=== PATIENT | male | born 1955 | race Caucasian/White ===

== ENCOUNTER → 2016-07-29 | Outpatient (CLI) | payer BC ==
[~2016-07-29] MED LIST: ASPI81TA28 PO; ATOR-24 PO; BROM0.07 OPL; BYTI10 SC; CHOL1000 PO; CINN1CAP2 PO; CYAN500T13 PO; DOCU100C31 PO; FOLI400T41 PO; HMLI SC; INSDGI SC; KRIL1CAP3 PO; LISI-461 PO; LSX/40 PO; METO25TA56 PO; MULT-513 PO; PRED1SUS3; PRED1SUS3 OPL; SYN100 PO
[2016-07-29 16:43] LABS: BASO % 0.2 %; BASO ABS # 0.02 K/uL (0-0.2); COMPLETE YES; EOS % 1.3 %; HEMATOCRIT 40.9 % (42-52); IG% 0.3 %; LYMPH % 27.3 %; LYMPH ABS # 3.07 K/uL (1.2-3.4); MEAN CELL VOLUME 88.5 fL (80-100); MEAN CORPUSCULAR HEMOGLOBIN 29.7 pg (25-34); MEAN CORPUSCULAR HGB CONC 33.5 g/dl (32-36); MEAN PLATELET VOLUME 12.2 fL (7.4-10.4); MONO % 6.9 %; PLATELET COUNT 214 K/uL (130-400); RED BLOOD COUNT 4.62 M/uL (4.7-6.1); WHITE BLOOD COUNT 11.25 K/uL (4.8-10.8)
[2016-07-29 16:50] LABS: ALT/SGPT 25 U/L (12-78); AST/SGOT 12 U/L (15-37); URIC ACID 5.9 mg/dl (2.6-7.2)
[2016-07-29 16:53] LABS: ALKALINE PHOSPHATASE 66 U/L (45-117)
[2016-07-30 06:19] LABS: ESTIMATED AVERAGE GLUCOSE 203 mg/dl; HA1C FLAG Normal (Normal)
== END | disposition home or self-care (01) ==
LOC: C.LAB1850 15:25
PROVIDERS: ATTEND Internal Medicine Rheumatology
DX: E11.49 Type 2 diabetes mellitus with other diabetic neurological complication (principal); M1A.9XX1 Chronic gout, unspecified, with tophus (tophi)

== ENCOUNTER → 2016-09-30 | Outpatient (CLI) | payer BC ==
[2016-09-30 15:50] LABS: BASO % 0.1 %; BASO ABS # 0.01 K/uL (0-0.2); COMPLETE YES; EOS % 1.6 %; HEMATOCRIT 40.6 % (42-52); IG% 0.2 %; LYMPH % 35.7 %; LYMPH ABS # 3.18 K/uL (1.2-3.4); MEAN CELL VOLUME 85.7 fL (80-100); MEAN CORPUSCULAR HEMOGLOBIN 28.7 pg (25-34); MEAN CORPUSCULAR HGB CONC 33.5 g/dl (32-36); MEAN PLATELET VOLUME 11.3 fL (7.4-10.4); MONO % 6.5 %; NEUT % 55.9 %; PLATELET COUNT 221 K/uL (130-400); RED BLOOD COUNT 4.74 M/uL (4.7-6.1); WHITE BLOOD COUNT 8.92 K/uL (4.8-10.8)
[2016-09-30 15:58] LABS: URINE APPEARANCE CLEAR (CLEAR); URINE BILIRUBIN NEG (NEG); URINE COLOR YELLOW; URINE NITRITE NEG (NEG); URINE PH 5.5 (4.5-7.5); URINE SPECIFIC GRAVITY 1.011 (1.000-1.030); UROBILINOGEN NEG (NEG); ZZUR CULT IF INDIC CLEAN CATCH NO
[2016-09-30 16:07] LABS: MANUAL MICROSCOPIC REQUIRED? NO; REVIEW REQ? NO
[2016-09-30 16:09] LABS: BLOOD UREA NITROGEN 44 mg/dl (7-18); BUN/CREATININE RATIO 22.2 (10-20); CALCIUM 9.8 mg/dl (8.5-10.1); CARBON DIOXIDE 27 mmol/L (21-32); CHLORIDE 104 mmol/L (98-107); GLUCOSE 143 mg/dl (70-99); MAGNESIUM 2.2 mg/dl (1.8-2.4); POTASSIUM 4.8 mmol/L (3.5-5.1); SODIUM 139 mmol/L (136-145)
[2016-09-30 16:10] LABS: PHOSPHORUS 3.3 mg/dl (2.5-4.9)
[2016-09-30 16:15] LABS: URINE PROTIEN/CREAT RATIO 0.4 (0-0.2)
== END | disposition home or self-care (01) ==
LOC: C.LAB1850 14:58
PROVIDERS: ATTEND Internal Medicine Nephrology
DX: N18.3 Chronic kidney disease, stage 3 (moderate) (principal)

== ENCOUNTER 2019-06-22 10:14 | Inpatient (IN) ==
[2019-06-22] MEDS ORDERED: METOPROLOL TARTRATE 1 MG/ML VIAL IV STA ×2 (11:09→14:06)
[2019-06-22] MEDS ORDERED: SODIUM CHLORIDE 0.9% 500 ML IV SCH (11:15)
--- NOTE | 2019-06-22 11:33 | XRay Report ---
SINGLE VIEW CHEST CLINICAL HISTORY: Atypical chest pain. FINDINGS: 2 AP, portable, upright chest radiographs are compared to chest x-ray and chest CT dated 06/2014. The examination is degraded by portable technique, large body habitus, and patient rotation. The patient is status post midline sternotomy. The heart is enlarged. There is pulmonary vascular co ngestion. There is chronic elevation of the right hemidiaphragm with associated atelectasis. No airsp rosmery consolidation is seen typical for pneumonia and there is no large pleural effusion. No pneumothor ax is seen. The skeletal structures are osteopenic. The bony thorax is grossly intact. IMPRESSION: Cardiomegaly with evidence of congestive failure. Electronically signed by: Franklin Valles M.D. 06/22/2019 11:31 AM
[2019-06-22 11:37] LABS: Basophils # (auto) 0.01 K/uL (0-0.2); Basophils % (auto) 0.1 %; Eosinophils % (auto) 1.2 %; Hematocrit (blood only) 38.6 % (42-52); Hemoglobin 12.4 g/dL (14.0-18.0); Immature Granulocytes # (auto) 0.03 K/uL (0.00-0.02); Immature Granulocytes % (auto) 0.4 %; Lymphocytes % (auto) 21.3 %; Mean Corpuscular Hemoglobin 28.9 pg (25-34); Mean Corpuscular Hgb Conc 32.1 g/dL (32-36); Mean Platelet Volume 12.5 fL (7.4-10.4); Monocytes # (auto) 0.73 K/uL (0.11-0.59); Monocytes % (auto) 8.6 %; Neutrophils % (auto) 68.4 %; Platelet Count 171 K/uL (130-400); RDW Coefficient of Variation 14.6 % (11.5-14.5); RDW Standard Deviation 47.1 fL (36.4-46.3); Red Blood Count 4.29 M/uL (4.7-6.1); White Blood Count 8.47 K/uL (4.8-10.8)
[2019-06-22 11:45] LABS: Albumin Level 3.1 gm/dl (3.4-5.0); Calcium 8.5 mg/dl (8.5-10.1); Creatinine Clr Calc Pharmacy 56.8 ml/min; Est GFR (African American) 43.1; Est GFR (Non-African American) 37.2; INR 1.1 (0.9-1.1); Partial Thromboplastin Time 26.8 Seconds (21.0-31.0); Potassium 4.4 mmol/L (3.5-5.1)
[2019-06-22 11:50] LABS: Albumin Globulin Ratio 0.8 (0.9-2); Bilirubin,Total 0.4 mg/dl (0.2-1); Total Protein 7.1 gm/dl (6.4-8.2); Troponin I 0.019 ng/ml (0-0.045)
--- NOTE | 2019-06-22 13:27 | Emergency Department Note ---
Entered by Arun Wagner acting as a scribe for Matthew Sage DO History of Present Illness General Chief complaint: Shortness of Breath/Dyspnea Stated complaint: SOB Time Seen by Provider: 06/22/19 10:44 Source: patient History of Present Illness Provider complaint: Shortness of breath Onset (ago): day(s) 3 Location: chest Radiation: non-radiation Severity: similar to prior episodes Pain Consistency: + constant Exacerbated By: + other (Exertion) Associated symptoms: no chest pain and no fever/chills The patient is a 63 year old male who presents to the Emergency Room with co mplaints of constant shortness of breath that started about 3 days ago. The patient states his shortness of breath is worse with exertion. Per the patient's , his pulse has also been elevated since the onset of his shortness of breath. The patient takes Aspirin daily but is not on any other blood thinners. The patient has a cardiac history and follows with Columba Plummer. He was supposed to see her this week but his appointment was rescheduled for July. The patient denies any pain or swelling in his legs as well as any chest pain or fevers. He does admit to being a former smoker. Home Medications Home Medications Medication Instructions Recorded Confirmed Type ascorbic acid (vitamin C) 500 mg 500 mg PO DAILY tab 03/03/19 06/22/19 History tablet aspirin 81 mg tablet,delayed 81 mg PO DAILY tab 03/03/19 06/22/19 History release blood-glucose meter #1 ea 03/03/19 History cholecalciferol (vitamin D3) 50 4,000 units PO DAILY cap 03/03/19 06/22/19 History mcg (2,000 unit) capsule cyanocobalamin (vitamin B-12) 500 500 mcg PO DAILY #100 tab 03/03/19 06/22/19 History mcg tablet diclofenac sodium 1 % topical gel 2 gm TOPICAL BID #1 gm 03/03/19 06/22/19 History dulaglutide 1.5 mg/0.5 mL 1.5 mg SQ WEEKLY ml 03/03/19 06/22/19 History subcutaneous pen injector folic acid 400 mcg tablet 400 mcg PO DAILY tab 03/03/19 06/22/19 History insulin aspart U-100 100 unit/mL 60 units SQ .COMPLEX ml 03/03/19 06/22/19 History (3 mL) subcutaneous pen krill oil 500 mg capsule 500 mg PO DAILY cap 03/03/19 06/22/19 History lancets 33 gauge #100 ea 03/03/19 History levothyroxine 112 mcg capsule 112 mcg PO .COMPLEX cap 03/03/19 06/22/19 History metoprolol tartrate 25 mg tablet 25 mg PO BID tab 03/03/19 06/22/19 History multivitamin 1 tab PO DAILY 03/03/19 06/22/19 History naltrexone 8 mg-bupropion 90 mg 1 tab PO BID tab 03/03/19 06/22/19 History tablet,extended release Tresiba FlexTouch U-200 200 80 units SQ HS 90 Days #4 box NS 03/12/19 06/22/19 Rx unit/mL (3 mL) subcutaneous pen lisinopril 10 mg tablet 10 mg PO DAILY #30 tab 04/26/19 06/22/19 Rx pen needle, diabetic 31 gauge x #500 ea 05/07/19 Rx 3/16" Praluent Pen 75 mg/mL subcutaneous 75 mg SQ Q14D #6 ml NS 05/11/19 06/22/19 Rx pen injector ZadspaceTouch Ultra Blue Test Strip #300 ea NS 05/13/19 Rx furosemide 40 mg tablet 40 mg PO Q OTHER DAY #45 tab 06/13/19 06/22/19 Rx Allergies Allergy/AdvReac Type Severity Reaction Status Date / Time Laapflb-Iuc-Zjq Reductase Allergy Unknown Verified 06/22/19 11:37 Inhibitor Past Med/Surg History Medical History Background diabetic retinopathy associated with type 2 diabetes mellitus Chronic tophaceous gout Coronary artery disease Diabetes Diabetic nephropathy associated with type 2 diabetes mellitus Diabetic peripheral neuropathy associated with type 2 diabetes mellitus Dyslipidemia Former smoker Hypertension Hypertension Hypothyroidism Morbid obesity Osteoarthrosis Stage III chronic kidney disease Surgical History S/P CABG (coronary artery bypass graft) Family History Other Kidney disease Social History Current Living Situation: Spouse Feels Safe at Home: Yes Smoking Status: Former smoker Review of Systems See HPI for pertinent positives & negatives. and A total of 10 systems reviewed and were otherwise negative Physical Exam Vital Signs Vital Signs - 24 hr 06/22/19 10:22 06/22/19 10:34 06/22/19 10:48 Temperature 36.5 C Temperature Source Oral Pulse Rate 142 H 89 119 H Pulse Rate from SpO2 Sensor 123 H 110 H Respiratory Rate 24 21 22 Respiratory Effort / Characteristics Non-Labored Non-Labored Respiratory Depth Normal Blood Pressure 159/101 H 93/68 L Blood Pressure Mean 120 77 Pulse Oximetry 96 95 95 Oxygen Delivery Method Room Air Room Air Sepsis Recent Fever Within 48 Hours No Sepsis Action Taken by Nursing No Action Required 06/22/19 10:51 06/22/19 11:00 06/22/19 11:01 Temperature Temperature Source Pulse Rate 110 H 118 H 98 H Pulse Rate from SpO2 Sensor 104 H 101 H 98 H Respiratory Rate 21 16 14 Respiratory Effort / Characteristics Respiratory Depth Blood Pressure 98/77 L 86/68 L Blood Pressure Mean 89 78 Pulse Oximetry 97 97 97 Oxygen Delivery Method Sepsis Recent Fever Within 48 Hours Sepsis Action Taken by Nursing 06/22/19 11:30 06/22/19 11:31 06/22/19 11:38 Temperature Temperature Source Pulse Rate 115 H 110 H Pulse Rate from SpO2 Sensor 111 H 94 H Respiratory Rate 20 19 Respiratory Effort / Characteristics Respiratory Depth Blood Pressure 112/67 Blood Pressure Mean 85 Pulse Oximetry 97 97 97 Oxygen Delivery Method Room Air Sepsis Recent Fever Within 48 Hours Sepsis Action Taken by Nursing 06/22/19 12:00 06/22/19 12:01 06/22/19 12:03 Temperature Temperature Source Pulse Rate 107 H 92 H 92 H Pulse Rate from SpO2 Sensor 98 H 92 H 97 H Respiratory Rate 20 18 19 Respiratory Effort / Characteristics Respiratory Depth Blood Pressure 91/69 L 108/87 Blood Pressure Mean 84 91 Pulse Oximetry 96 97 97 Oxygen Delivery Method Sepsis Recent Fever Within 48 Hours Sepsis Action Taken by Nursing 06/22/19 12:04 06/22/19 12:30 06/22/19 12:31 Temperature Temperature Source Pulse Rate 92 H 90 104 H Pulse Rate from SpO2 Sensor 94 H 96 H 100 H Respiratory Rate 21 21 21 Respiratory Effort / Characteristics Respiratory Depth Blood Pressure 110/69 Blood Pressure Mean 70 Pulse Oximetry 98 97 97 Oxygen Delivery Method Sepsis Recent Fever Within 48 Hours Sepsis Action Taken by Nursing 06/22/19 13:00 06/22/19 13:01 Temperature Temperature Source Pulse Rate 115 H 109 H Pulse Rate from SpO2 Sensor 99 H 93 H Respiratory Rate 21 21 Respiratory Effort / Characteristics Respiratory Depth Blood Pressure 106/76 Blood Pressure Mean 98 Pulse Oximetry 98 98 Oxygen Delivery Method Sepsis Recent Fever Within 48 Hours Sepsis Action Taken by Nursing CONSTITUTIONAL/VITAL SIGNS: Reviewed / noted above. GENERAL: Non-toxic in appearance. INTEGUMENTARY: Warm, dry, and [place]. HEAD: Normocephalic. EYES: without scleral icterus or trauma. ENT/OROPHARYNX: clear and moist. LYMPHADENOPATHY/NECK: Is supple without lymphadenopathy or meningismus. RESPIRATORY: Lungs clear and equal. CARDIOVASCULAR: Tachycardic rate with irregular rhythm. GI/ABDOMEN: Soft and nontender. No organomegaly or pulsatile mass. No rebound or guarding. Normal bowel sounds. EXTREMITIES: Warm and well perfused. BACK: No CVA tenderness. NEUROLOGICAL: Intact without focal deficits. PSYCHIATRIC: normal affect. MUSCULOSKELETAL: Normally developed with good muscle tone. Course Course 1046: Past medical records reviewed. The patient was evaluated in room C04, and a complete history and physical examination were performed. 1236: I reevaluated the patient and he is resting in bed. I updated him on test results and we discussed the treatment plan which he is agreeable to. 1244: I spoke to Dr. Jean-Claude Osborne [facility] Hospitalist about the patient's case. He agreed to accept the patient for further evaluation. Consultations Consultation #1: I spoke to Dr. Jean-Claude Osborne [facility] Hospitalist about the patient's case. He agreed to accept the patient for further evaluation. Time: 12:44 Administered Medications Discontinued Medications Sodium Chloride (Nss) 500 mls @ 999 mls/hr IV .Q31M [facility] Stop: 06/22/19 11:45 Last Admin: 06/22/19 12:06 Dose: 999 mls/hr Documented by: [id number] Metoprolol Tartrate (Lopressor) 5 mg IV NOW STA Stop: 06/22/19 11:10 Last Admin: 06/22/19 12:06 Dose: Not Given Documented by: [id number] Medical Decision Making Differential Diagnosis Differential diagnoses includes but is not limited to pneumonia, bronchitis, COPD/Asthma exacerbation, pneumothorax, pulmonary embolism, congestive heart failure, acute coronary syndrome, amongst others. Medical Records Attestation: I reviewed the patient's medical records. Home Medications Current Medication List: was personally reviewed by me Laboratory Data Attestation: I reviewed the patient's lab results. Result diagrams: 06/22/19 10:47 06/22/19 10:47 Lab Results 06/22/19 06/22/19 06/22/19 Range/Units 10:47 10:47 10:47 WBC 8.47 (4.8-10.8) K/uL RBC 4.29 L (4.7-6.1) M/uL Hgb 12.4 L (14.0-18.0) g/dL Hct 38.6 L (42-52) % MCV 90.0 (80-100) fL MCH 28.9 (25-34) pg MCHC 32.1 (32-36) g/dL RDW Std Deviation 47.1 H (36.4-46.3) fL RDW Coeff of Lucas 14.6 H (11.5-14.5) % Plt Count 171 (130-400) K/uL MPV 12.5 H (7.4-10.4) fL Immature Gran % (Auto) 0.4 % Neut % (Auto) 68.4 % Lymph % (Auto) 21.3 % [place] % (Auto) 8.6 % Eos % (Auto) 1.2 % Baso % (Auto) 0.1 % Immature Gran # (Auto) 0.03 H (0.00-0.02) K/uL Neut # (Auto) 5.80 (1.4-6.5) K/uL Lymph # (Auto) 1.80 (1.2-3.4) K/uL [place] # (Auto) 0.73 H (0.11-0.59) K/uL Eos # (Auto) 0.10 (0-0.5) K/uL Baso # (Auto) 0.01 (0-0.2) K/uL PT 11.0 (9.0-12.0) Seconds INR 1.1 (0.9-1.1) APTT 26.8 (21.0-31.0) Seconds PTT Ratio 1.0 Sodium 139 (136-145) mmol/L Potassium 4.4 (3.5-5.1) mmol/L Chloride 110 H (98-107) mmol/L Carbon Dioxide 24 (21-32) mmol/L Anion Gap 5.0 (3-11) BUN 41 H (7-18) mg/dl Creatinine 1.87 H (0.6-1.4) mg/dl Est Cr Clr Drug Dosing 56.8 ml/min Est GFR ( Amer) 43.1 Est GFR (Non-Af Amer) 37.2 BUN/Creatinine Ratio 22.0 H (10-20) Glucose 95 (70-99) mg/dl Calcium 8.5 (8.5-10.1) mg/dl Total Bilirubin 0.4 (0.2-1) mg/dl AST 13 L (15-37) U/L ALT 27 (12-78) U/L Alkaline Phosphatase 59 (45-117) U/L Troponin I 0.019 (0-0.045) ng/ml Total Protein 7.1 (6.4-8.2) gm/dl Albumin 3.1 L (3.4-5.0) gm/dl Globulin 4.0 (2.5-4.0) gm/dl Albumin/Globulin Ratio 0.8 L (0.9-2) Lipase 68 L (73-393) U/L Imaging Data Radiologist's Impression: Radiology results as stated below per my review and the radiologist's interpretation: SINGLE VIEW CHEST CLINICAL HISTORY: Atypical chest pain. FINDINGS: 2 AP, portable, upright chest radiographs are compared to chest x-ray and chest CT dated 03/18/2014. The examination is degraded by portable technique, large body habitus, and patient rotation. The patient is status post midline sternotomy. The heart is enlarged. There is pulmonary vascular congestion. There is chronic elevation of the right hemidiaphragm with associated atelectasis. No airspace consolidation is seen typical for pneumonia and there is no large pleural effusion. No pneumothorax is seen. The skeletal structures are osteopenic. The bony thorax is grossly intact. IMPRESSION: Cardiomegaly with evidence of congestive failure. Electronically signed by: Franklin Valles M.D. 06/22/2019 11:31 AM ECG Data Attestation: I personally reviewed and interpreted this ECG as follows: Indication: + SOB/dyspnea Rate (beats per minute): 138 Rhythm: + atrial flutter ECG Intervals/blocks: + Right Bundle branch block ECG ST segments: no ST elevation ECG Findings: no PACs and no PVCs Blood Pressure Blood Pressure Findings: Elevated blood pressure Blood Pressure Disposition: Referred to patients primary care provider MDM Narrative This is a 63-year-old male who presents to the ED with a chief complaint of shortness of breath. The patient states that he has been feeling short of breath for the past few days. He is also noticed an increased heart rate. He follows with [facility] cardiology. He states that he does have a remote histor y of atrial flutter, he thinks but is not sure. He may have had this at some time during or prior to his CABG. He is not on anticoagulation and denies recent history atrial febrile letter. The patient's twelve-lead EKG revealed atrial flutter with RVR of 138. His blood pressure was initially around 90 systolic. His CBC and chemistry panel was normal. The BUN is 41 and creatinine is 1.87. This is near baseline for creatinine. The chest x-ray showed congestive changes. Clinically I did not feel he was an acute pulmonary edema. The patient was initially ordered a 500 cc normal saline bolus and received about 150 cc of this. He was also ordered 5 mg of IV Lopressor. His blood pressure did improve to 110 systolic and his heart rate decreased into the 90- 110's. The patient will be seen by the hospitalist for further evaluation and care. Impression & Plan Congestive heart failure, Atrial flutter Discharge Plan Visit Data Chief Complaint: Shortness of Breath/Dyspnea Stated Complaint: SOB ED Provider: Matthew Sage Discharge Problem: Congestive heart failure, Atrial flutter Patient Disposition: Being Evaluated by Hospitalist Forms Stand Alone Forms: My [facility] Prescriptions Prescriptions: No Action aspirin 81 mg tablet,delayed release (DR/EC) 81 mg PO DAILY RF: 0 Contrave 8-90 mg tablet extended release 1 tab PO BID RF: 0 diclofenac sodium 1 % gel 2 gm topical BID Qty: 1 RF: 0 folic acid 400 mcg tablet 400 mcg PO DAILY RF: 0 krill oil 500 mg capsule 500 mg PO DAILY RF: 0 levothyroxine 112 mcg capsule 112 mcg PO .COMPLEX RF: 0 metoprolol tartrate 25 mg tablet 25 mg PO BID RF: 0 multivitamin tablet 1 tab PO DAILY RF: 0 Novolog Flexpen U-100 Insulin 100 unit/mL (3 mL) insulin pen 60 units SQ .COMPLEX RF: 0 (DME) lancets [OneTouch Delica Lancets] 33 gauge misc See Dose Instructions .ROUTE .MEDSUPPLY Qty: 100 RF: 0 (DME) blood-glucose meter [OneTouch UltraMini] kit See Dose Instructions .ROUTE .MEDSUPPLY Qty: 1 RF: 0 ascorbic acid (vitamin C) 500 mg tablet 500 mg PO DAILY RF: 0 Trulicity 1.5 mg/0.5 mL pen injector 1.5 mg SQ WEEKLY RF: 0 cyanocobalamin (vitamin B-12) 500 mcg tablet 500 mcg PO DAILY Qty: 100 RF: 0 cholecalciferol (vitamin D3) 2,000 unit capsule 4,000 units PO DAILY RF: 0 Tresiba FlexTouch U-200 200 unit/mL (3 mL) insulin pen 80 units SQ HS 90 Days Qty: 4 RF: 1 lisinopril 10 mg tablet 10 mg PO DAILY Qty: 30 RF: 5 (DME) pen needle, diabetic [BD Ultra-Fine Mini Pen Needle] 31 gauge x 3/16" n eedle See Dose Instructions .ROUTE .MEDSUPPLY Qty: 500 RF: 3 Praluent Pen 75 mg/mL pen injector 75 mg SQ Q14D Qty: 6 RF: 3 (DME) OneTouch Ultra Blue Test Strip strip See Dose Instructions .ROUTE .MEDSUPPLY Qty: 300 RF: 3 furosemide 40 mg tablet 40 mg PO Q OTHER DAY Qty: 45 RF: 3 Referrals Referrals: Abel Nicolas MD [Primary Care Provider] - Discharge Problem: Congestive heart failure Qualifiers: Heart failure type: unspecified Heart failure chronicity: unspecified Qualified Code(s): I50.9 - Heart failure, unspecified Atrial flutter Qualifiers: Atrial flutter type: unspecified Qualified Code(s): I48.92 - Unspecified atrial flutter The scribe's documentation has been prepared under my direction and personally reviewed by me in its entirety. I confirm that the note above accurately reflects all work, treatment, procedures, and medical decision making performed by me.
--- NOTE | 2019-06-22 13:30 | History & Physical Report ---
Date of Service June 22, 2019 Assessment & Plan (1) Atrial flutter: (2) Atrial fibrillation with RVR: -Admit to telemetry -Patient was treated with 1 IV dose of Lopressor in the ER with improvement in heart rate from the 140s down into 110s, repeat another dose of IV Lopressor 5mg now, Bp stable, continue PRN with parameters. -Cardiology consult, [facility] [place]. -Repeat echo -Trend troponins x2 more sets, initial was 0.019 (3) Congestive heart failure: -Chronic -Slightly hypervolemic upon admission, giving lasix as above, check echo as last results are from 2014 where EF was 50%. He had worst cardiac function after his [place] in 2013 -Follow VS, monitor BP and HR -Daily weights, strict I/Os, fluid restriction to 1500ml/d -Cardiology consultation (4) Coronary artery disease: -History of CABG x3, previous [place] in 2013 -Continue aspirin 81 mg daily, metoprolol tartrate 25 mg BID, hold lisinopril this evening with administration of lopressor IV and lasix. (5) Hypertension: -Continue beta-blockade and lasix as above. (6) Dyslipidemia: -Continue Krill oil (7) Former smoker: -Stable, resolved (8) Diabetes: -Continue ISS with Accu-Cheks ACHS -Tresiba flex touch 200 subcu pen injections, Trulicity 1.5 mg weekly, uses slid ing scale at home -Last A1c = 7.2 04/23/2019 (9) Hypothyroidism: -Continue levothyroxine 112 mcg daily (10) Morbid obesity: -BMI of 47.4 -DM/heart healthy diet -Diet and exercise to be encouraged upon discharge (11) Stage III chronic kidney disease: - Cr. 1.87, BUN = 41, appears to be around his baseline. - Will hold lisinopril tonight with IV lasix and monitor with am PRP. (12) DVT prophylaxis: -Teds, SCDs, heparin subcu CODE STATUS: FULL Dispo: Patient from home, to remain in the hospital x1 to 2 days History of Present Illness Primary Care Provider: Abel Nicolas MD This is a 63-year-old male with past medical history of CAD s/p CABG x3 in Apr 2014 with postop sternal wound infection, a flutter, A. fib, HTN, HLD, CHF, CKD stage III, DM type II, diabetic nephropathy, diabetic retinopathy, hypothyroidism, gout who presents to the ER in atrial fibrillation with RVR. Patient was initially found to have heart rate elevated in the 140s, has improved with 1 dose of IV Lopressor to the ~110s. The patient notes that he began feeling short of breath with ADLs about 3 days ago. He has difficulty going up a flight of stairs without becoming significantly winded. He denies any chest pain, palpitations, flutter. He reports that he has not been sleeping well as he feels slightly short of breath, but denies orthopnea. He denies any lightheadedness or dizziness. He has been eating and drinking without difficulty. Patient states that he is not swollen however on exam appears to have mild pitting edema in both legs. Patient reports he took his morning medication today which includes metoprolol tartrate 25 mg, last took lisinopril last evening, and last took Lasix 40 mg QOD 2 nights ago. He follows with Columba Plummer PA-C with [facility] [place] but has not been in to see her recently due to having a routine appointment rescheduled for July 2019. Allergies Allergy/AdvReac Type Severity Reaction Status Date / Time [id number]-Cpm Reductase Allergy Unknown Verified 06/22/19 11:37 Inhibitor Home Medications Home Medications Medication Instructions Recorded Confirmed Type ascorbic acid (vitamin C) 500 mg 500 mg PO DAILY tab 03/03/19 06/22/19 History tablet aspirin 81 mg tablet,delayed 81 mg PO DAILY tab 03/03/19 06/22/19 History release blood-glucose meter #1 ea 03/03/19 History cholecalciferol (vitamin D3) 50 4,000 units PO DAILY cap 03/03/19 06/22/19 History mcg (2,000 unit) capsule cyanocobalamin (vitamin B-12) 500 500 mcg PO DAILY #100 tab 03/03/19 06/22/19 History mcg tablet diclofenac sodium 1 % topical gel 2 gm TOPICAL BID #1 gm 03/03/19 06/22/19 History dulaglutide 1.5 mg/0.5 mL 1.5 mg SQ WEEKLY ml 03/03/19 06/22/19 History subcutaneous pen injector folic acid 400 mcg tablet 400 mcg PO DAILY tab 03/03/19 06/22/19 History insulin aspart U-100 100 unit/mL 60 units SQ .COMPLEX ml 03/03/19 06/22/19 History (3 mL) subcutaneous pen krill oil 500 mg capsule 500 mg PO DAILY cap 03/03/19 06/22/19 History lancets 33 gauge #100 ea 03/03/19 History metoprolol tartrate 25 mg tablet 25 mg PO BID tab 03/03/19 06/22/19 History multivitamin 1 tab PO DAILY 03/03/19 06/22/19 History naltrexone 8 mg-bupropion 90 mg 1 tab PO BID tab 03/03/19 06/22/19 History tablet,extended release Tresiba FlexTouch U-200 200 80 units SQ HS 90 Days #4 box NS 03/12/19 06/22/19 Rx unit/mL (3 mL) subcutaneous pen lisinopril 10 mg tablet 10 mg PO DAILY #30 tab 04/26/19 06/22/19 Rx pen needle, diabetic 31 gauge x #500 ea 05/07/19 Rx 3/16" Praluent Pen 75 mg/mL subcutaneous 75 mg SQ Q14D #6 ml NS 05/11/19 06/22/19 Rx pen injector OneTouch Ultra Blue Test Strip #300 ea NS 05/13/19 Rx furosemide 40 mg tablet 40 mg PO Q OTHER DAY #45 tab 06/13/19 06/22/19 Rx levothyroxine 112 mcg tablet 112 mcg PO DAILY 06/22/19 History Past Med/Surg History Medical History Background diabetic retinopathy associated with type 2 diabetes mellitus Chronic tophaceous gout Coronary artery disease Diabetes Diabetic nephropathy associated with type 2 diabetes mellitus Diabetic peripheral neuropathy associated with type 2 diabetes mellitus Dyslipidemia Former smoker Hypertension Hypertension Hypothyroidism Morbid obesity Osteoarthrosis Stage III chronic kidney disease Surgical History S/P CABG (coronary artery bypass graft) Family History Other Kidney disease Social History Preferred Language: Guatemalan Communication Ability: Effective Internist Required: No Beliefs That Will Affect Care: None Current Living Situation: Spouse Other Information That Helps Us Care for You: No Feels Safe at Home: Yes Safety Concerns: Feels Safe At This Time Smoking Status: Former smoker Hx Alcohol Use: No Hx Substance Use: No Review of Systems Review of Systems: Constitutional: No fever, sweats or chills Eyes: No diplopia, no worsening or blurred vision ENT: normal hearing, no trouble swallowing Respiratory: No cough, sputum, no dyspnea at rest + dyspnea with minimal exertion and basic ADLs Cardiovascular: No chest pain, tightness or palpitations, no lightheadedness or dizziness Abdomen: No pain, nausea, vomiting, diarrhea or constipation Musculoskeletal: No joint pain, calf pain, swelling Neurologic: No weakness, numbness/tingling, or balance problems Psychiatric: No anxiety or depression Skin: No rash or itch Physical Exam Physical Exam: General: awake, alert, no apparent distress Head: Normocephalic, atraumatic ENT: PERRL, EOMI, no pharyngeal exudate, mucous membranes moist Chest: Clear to auscultation, on 2L via NC, no adventitious breath sounds Cardiac: Irregularly irregular, HR = 110 at bedside, no murmur, no JVD, normal peripheral pulses, good capillary refill Abdominal: NABS x 4 quadrants, soft, nondistended, nontender to palpation, no rebound, guarding or tenderness Extremities: Normal inspection, +1 peripheral edema BLE, no erythema, calfs nontender to palpation Psych: Normal mood and affect Neuro: AAO x 3, strength intact bilaterally and related 5/5, no motor deficits, speech is clear, no peripheral sensory deficits Results & Data Vital Signs (Past 12 Hours) Vital Signs Temp Pulse Resp BP Pulse Ox 06/22/19 13:01 109 H 21 98 06/22/19 13:00 115 H 21 106/76 98 06/22/19 12:31 104 H 21 97 06/22/19 12:30 90 21 110/69 97 06/22/19 12:04 92 H 21 98 06/22/19 12:03 92 H 19 108/87 97 06/22/19 12:01 92 H 18 91/69 L 97 06/22/19 12:00 107 H 20 96 06/22/19 11:38 97 06/22/19 11:31 110 H 19 97 06/22/19 11:30 115 H 20 112/67 97 06/22/19 11:01 98 H 14 97 06/22/19 11:00 118 H 16 86/68 L 97 06/22/19 10:51 110 H 21 98/77 L 97 06/22/19 10:48 119 H 22 95 06/22/19 10:34 89 21 93/68 L 95 06/22/19 10:22 36.5 C 142 H 24 159/101 H 96 Diagnostic Findings SINGLE VIEW CHEST CLINICAL HISTORY: Atypical chest pain. FINDINGS: 2 AP, portable, upright chest radiographs are compared to chest x-ray and chest CT dated 03/18/2014. The examination is degraded by portable technique, large body habitus, and patient rotation. The patient is status post midline sternotomy. The heart is enlarged. There is pulmonary vascular congestion. There is chronic elevation of the right hemidiaphragm with associated atelectasis. No airspace consolidation is seen typical for pneumonia and there is no large pleural effusion. No pneumothorax is seen. The skeletal structures are osteopenic. The bony thorax is grossly intact. IMPRESSION: Cardiomegaly with evidence of congestive failure. ECG Additional Comments: 22-JUN-2019 10:30:34 [facility]-EDSTAT ROUTINE RETRIEVAL Poor data quality, interpretation may be adversely affected Atrial flutter with variable A-V block Left axis deviation Right bundle branch block Inferior infarct (cited on or before 23-JAN-1998) Abnormal ECG When compared with ECG of 18-MAR-2014 16:38, Atrial flutter has replaced Sinus rhythm Vent. rate has increased BY 56 BPM Right bundle branch block is now Present ... 25mm/s 10mm/mV 150Hz 9.0.9 12SL 241 AMY: 15 Confirmed By: Jovani Gonzalez Vent. rate 138 BPM NE interval * ms QRS duration 154 ms QT/QTc 332/502 ms P-R-T axes 251 -39 6 Code Status & VTE Plan Code Status Full code-discussed with the patient and his family at bedside. Reports that he would not want heroic measures. PG Care Time/CCT Total # of Minutes Spent Total Time Spent with Patient: Total time spent is greater than 50% in coordination of care (as documented) at patient's floor/unit and/or counseling patient: (1) Congestive heart failure Heart failure chronicity: unspecified Heart failure type: unspecified Qualified Code(s): I50.9 - Heart failure, unspecified (2) Atrial flutter Atrial flutter type: unspecified Qualified Code(s): I48.92 - Unspecified atrial flutter
[2019-06-22] MEDS ORDERED: FUROSEMIDE 40 MG/4 ML VIAL IV STA (14:06)
[2019-06-22] MEDS ORDERED: GLUCOSE 40% GEL 15 GM TUBE PO PRN (15:57)
[2019-06-22] MEDS ORDERED: ONDANSETRON INJ 2 MG/ML 2 ML VIAL IV PRN (15:57)
[2019-06-22] MEDS ORDERED: GLUCOSE 10 TABS/TUBE PO PRN (15:57)
[2019-06-22] MEDS ORDERED: ALIROCUMAB 75 MG SQ SCH (15:57)
[2019-06-22] MEDS ORDERED: METOPROLOL TARTRATE 1 MG/ML VIAL IV PRN (15:57)
[2019-06-22] MEDS ORDERED: ACETAMINOPHEN 325 MG TAB PO PRN (15:57)
[2019-06-22] MEDS ORDERED: CARBOHYDRATES FOR HYPOGLYCEMIA PO PRN (15:57)
[2019-06-22] MEDS ORDERED: GLUCAGON FOR INJ 1 MG VIAL SQ PRN (15:57)
[2019-06-22] MEDS ORDERED: DEXTROSE 50% 50 ML SYRINGE IV PRN (15:57)
[2019-06-22] MEDS: INSULIN ASPART 100 UNITS/ML 3 ML PEN SC SCH ×2 (17:36→21:14)
[2019-06-22] MEDS: HEPARIN SOD 5,000 UNIT/0.5 ML VIAL SQ SCH ×2 (17:56→20:05)
[2019-06-22] MEDS: DICLOFENAC SOD 1% GEL 100 GM TUBE EXT SCH (20:04)
[2019-06-22] MEDS: METOPROLOL TARTRATE 25 MG TAB PO SCH (20:05)
[2019-06-22] MEDS ORDERED: INSULIN GLARGINE SOLOSTAR 100 UNITS/ML 3 ML PEN SC SCH ×2 (21:00)
[2019-06-23 02:18] LABS: Albumin Level 2.9 gm/dl (3.4-5.0); BUN Creatinine Ratio 20.9 (10-20); Calcium 8.4 mg/dl (8.5-10.1); Creatinine Clr Calc Pharmacy 55.7 ml/min; Est GFR (Non-African American) 36.2; Potassium 4.4 mmol/L (3.5-5.1)
[2019-06-23 02:23] LABS: Albumin Globulin Ratio 0.8 (0.9-2); Bilirubin,Total 0.5 mg/dl (0.2-1); Globulin 3.7 gm/dl (2.5-4.0); Total Protein 6.6 gm/dl (6.4-8.2); Troponin I 0.025 ng/ml (0-0.045)
[2019-06-23 02:45] LABS: Hematocrit (blood only) 38.1 % (42-52); Hemoglobin 11.9 g/dL (14.0-18.0); Mean Corpuscular Hemoglobin 28.9 pg (25-34); Mean Corpuscular Hgb Conc 31.2 g/dL (32-36); Mean Corpuscular Volume 92.5 fL (80-100); Mean Platelet Volume 12.7 fL (7.4-10.4); Platelet Count 151 K/uL (130-400); RDW Coefficient of Variation 14.3 % (11.5-14.5); RDW Standard Deviation 48.7 fL (36.4-46.3); Red Blood Count 4.12 M/uL (4.7-6.1); White Blood Count 9.05 K/uL (4.8-10.8)
[2019-06-23] MEDS: HEPARIN SOD 5,000 UNIT/0.5 ML VIAL SQ SCH (05:23)
[2019-06-23] MEDS: LEVOTHYROXINE SODIUM 112 MCG TABLET PO SCH (05:29)
[2019-06-23] MEDS: CYANOCOBALAMIN 500 MCG TABLET (VITAMIN B-12) PO SCH (08:32)
[2019-06-23] MEDS: MULTIVITAMIN TAB PO SCH (08:32)
[2019-06-23] MEDS: ASPIRIN 81 MG ECTAB PO SCH (08:32)
[2019-06-23] MEDS: FOLIC ACID 400 MCG TAB PO SCH (08:32)
[2019-06-23] MEDS: CHOLECALCIFEROL 1,000 UNITS TAB PO SCH (08:33)
[2019-06-23] MEDS: ASCORBIC ACID 500 MG TAB PO SCH (08:33)
[2019-06-23] MEDS: DICLOFENAC SOD 1% GEL 100 GM TUBE EXT SCH ×2 (08:33→20:47)
[2019-06-23] MEDS: METOPROLOL TARTRATE 25 MG TAB PO SCH ×4 (08:33→20:46)
--- NOTE | 2019-06-23 08:47 | Cardiology Consultation ---
Date of Consultation June 23, 2019 Assessment & Plan (1) Atrial fibrillation with RVR: 2. 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 Coronary artery disease-- post CABG 4. Hypertension 5. Dyslipidemia 6. CKD 7. CHF 8. Insulin dependent diabetes Patient admitted with new onset atrial fibrillation/flutter with rapid ventricular response. He is symptomatic with shortness of breath. On exam appears volume overloaded. Recommend attempting rate control strategy as patient is not anticoagulated. Will start anticoagulation for stroke risk reduction. Echo shows new LV systolic dysfunction. Low suspicion for ACS, likely tachycardia induced. Troponin is normal. Guideline based medical therapy and will repeat echo in the future as an outpatient. Recommend the following: --Lopressor 5 mg IV now --Increase metoprolol tartrate to 25 mg QID, transition to metoprolol succinate prior to discharge --Start Eliquis 5 mg bid --Lasix 40 mg IV daily, resume home Lasix at discharge --Monitor renal function/electrolytes --Strict I&Os. Low sodium diet. Daily weights History of Present Illness Reason for Consultation: Atrial flutter Attending Physician: Luis Lopez History of Present Illness Mr. Zapata is a 63-year-old male with medical history significant for coronary artery disease post CABG x 3 (04/06/14), postoperative afib, hypertension, dyslipidemia, history of tobacco use, diastolic CHF, insulin dependent type 2 diabetes, CKD, hypothyroidism. He was admitted with atrial flutter with RVR. He has a history of coronary artery disease and underwent CABG x 3 (MARKHAM to LAD, radial graft off of MARKHAM to OM, SVG to PDA) on 04/06/14 at [facility]. His postoperative course was complicated by atrial fibrillation. He was not maintained on termite technician anticoagulation as there was no evidence of recurrence. Patient reports that over the past 4 days or so he has noticed shortness of maria dolores th. Dyspnea worse on exertion. Also with increased lower extremity edema. Over the past few days home BP monitor has read his HR in the 140s. He did not experience palpitations. Due to his symptoms he presented to the ED yesterday. Electrocardiogram on arrival showed atrial flutter at 139 bpm. Patient was given IV lopressor and continued on home dose of metoprolol tartrate 25 mg bid. Heart rate remains elevated. Chest xray with pulmonary vascular congestion. reports he appeared short of breath this morning. Patient reports breathing has improved slightly. No orthopnea or PND overnight. He was given 40 mg Lasix IV yesterday. Positive fluid balance. Echo shows severely reduced LV systolic function (EF 30-35%). One episode of chest pain several weeks ago. This occurred when he found his brother who has cancer on the bathroom floor after a fall. Serial troponin normal. Social history: Patient is and lives with . Older brother who has cancer also living with him. History of tobacco use. No alcohol or drug use. Allergies Allergy/AdvReac Type Severity Reaction Status Date / Time [id number] Reductase Allergy Unknown Verified 06/22/19 11:37 Inhibitor Home Medications Home Medications Medication Instructions Recorded Confirmed Type ascorbic acid (vitamin C) 500 mg 500 mg PO DAILY tab 03/03/19 06/22/19 History tablet aspirin 81 mg tablet,delayed 81 mg PO DAILY tab 03/03/19 06/22/19 History release blood-glucose meter #1 ea 03/03/19 History cholecalciferol (vitamin D3) 50 4,000 units PO DAILY cap 03/03/19 06/22/19 History mcg (2,000 unit) capsule cyanocobalamin (vitamin B-12) 500 500 mcg PO DAILY #100 tab 03/03/19 06/22/19 History mcg tablet diclofenac sodium 1 % topical gel 2 gm TOPICAL BID #1 gm 03/03/19 06/22/19 History dulaglutide 1.5 mg/0.5 mL 1.5 mg SQ WEEKLY ml 03/03/19 06/22/19 History subcutaneous pen injector folic acid 400 mcg tablet 400 mcg PO DAILY tab 03/03/19 06/22/19 History insulin aspart U-100 100 unit/mL 60 units SQ .COMPLEX ml 03/03/19 06/22/19 History (3 mL) subcutaneous pen krill oil 500 mg capsule 500 mg PO DAILY cap 03/03/19 06/22/19 History lancets 33 gauge #100 ea 03/03/19 History metoprolol tartrate 25 mg tablet 25 mg PO BID tab 03/03/19 06/22/19 History multivitamin 1 tab PO DAILY 03/03/19 06/22/19 History naltrexone 8 mg-bupropion 90 mg 1 tab PO BID tab 03/03/19 06/22/19 History tablet,extended release Tresiba FlexTouch U-200 200 80 units SQ HS 90 Days #4 box NS 03/12/19 06/22/19 Rx unit/mL (3 mL) subcutaneous pen lisinopril 10 mg tablet 10 mg PO DAILY #30 tab 04/26/19 06/22/19 Rx pen needle, diabetic 31 gauge x #500 ea 05/07/19 Rx 3/16" Praluent Pen 75 mg/mL subcutaneous 75 mg SQ Q14D #6 ml NS 05/11/19 06/22/19 Rx pen injector OneTouch Ultra Blue Test Strip #300 ea NS 05/13/19 Rx furosemide 40 mg tablet 40 mg PO Q OTHER DAY #45 tab 06/13/19 06/22/19 Rx levothyroxine 112 mcg tablet 112 mcg PO DAILY 06/22/19 History Patient History Medical History Background diabetic retinopathy associated with type 2 diabetes mellitus Chronic tophaceous gout Coronary artery disease Diabetes Diabetic nephropathy associated with type 2 diabetes mellitus Diabetic peripheral neuropathy associated with type 2 diabetes mellitus Dyslipidemia Former smoker Hypertension Hypertension Hypothyroidism Morbid obesity Osteoarthrosis Stage III chronic kidney disease Surgical History S/P CABG (coronary artery bypass graft) Family History Other Kidney disease Social History Preferred Language: Croatian Communication Ability: Effective 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 HEENT: Head is normal. PERRLA. EOMI. Sclerae anicteric. Ears, nose and throat unremarkable. Mucous membranes moist. Neck: Normal carotid upstrokes, no bruits. No appreciable JVD. Lungs: Clear to auscultation bilaterally without rales, rhonchi or wheezes. Cardiac: Irregularly irregular. Tachycardic. S1-S2 normal. No appreciable murmur, gallop or rub. Abdomen: Soft and nontender. Bowel sounds normal. No mass or organomegaly. No abdominal bruit. Extremities/vascular: --Well perfused. 1+ LE edema bilaterally. Radial, DP and PT pulses 2+ bilaterally Skin: No rash or abnormal lesions. Normal turgor. Neurologic: Nonfocal Psychiatric: Affect appropriate. Alert and oriented. Results & Data Vital Signs (Past 12 Hours) Vital Signs Temp Pulse Resp BP Pulse Ox 06/23/19 08:00 36.6 C 111 H 20 103/76 94 06/23/19 04:33 36.5 C 91 H 20 109/67 93 06/22/19 23:36 36.5 C 135 H 20 130/86 97 06/22/19 23:16 118 H Laboratory Results Laboratory Results - last 24 hr 06/22/19 06/22/19 06/22/19 10:47 10:47 10:47 WBC 8.47 RBC 4.29 L Hgb 12.4 L Hct 38.6 L MCV 90.0 MCH 28.9 MCHC 32.1 RDW Std Deviation 47.1 H RDW Coeff of Lucas 14.6 H Plt Count 171 MPV 12.5 H Immature Gran % (Auto) 0.4 Neut % (Auto) 68.4 Lymph % (Auto) 21.3 [place] % (Auto) 8.6 Eos % (Auto) 1.2 Baso % (Auto) 0.1 Immature Gran # (Auto) 0.03 H Neut # (Auto) 5.80 Lymph # (Auto) 1.80 [place] # (Auto) 0.73 H Eos # (Auto) 0.10 Baso # (Auto) 0.01 PT 11.0 INR 1.1 APTT 26.8 PTT Ratio 1.0 Sodium 139 Potassium 4.4 Chloride 110 H Carbon Dioxide 24 Anion Gap 5.0 BUN 41 H Creatinine 1.87 H Est Cr Clr Drug Dosing 56.8 Est GFR ( Amer) 43.1 Est GFR (Non-Af Amer) 37.2 BUN/Creatinine Ratio 22.0 H Glucose 95 POC Glucose Calcium 8.5 Magnesium Total Bilirubin 0.4 AST 13 L ALT 27 Alkaline Phosphatase 59 Troponin I 0.019 Total Protein 7.1 Albumin 3.1 L Globulin 4.0 Albumin/Globulin Ratio 0.8 L Lipase 68 L Hepatitis C Ab Screen 06/22/19 06/22/19 06/22/19 10:47 16:30 18:00 WBC RBC Hgb Hct MCV MCH MCHC RDW Std Deviation RDW Coeff of Lucas Plt Count MPV Immature Gran % (Auto) Neut % (Auto) Lymph % (Auto) [place] % (Auto) Eos % (Auto) Baso % (Auto) Immature Gran # (Auto) Neut # (Auto) Lymph # (Auto) [place] # (Auto) Eos # (Auto) Baso # (Auto) PT INR APTT PTT Ratio Sodium Potassium Chloride Carbon Dioxide Anion Gap BUN Creatinine Est Cr Clr Drug Dosing Est GFR ( Amer) Est GFR (Non-Af Amer) BUN/Creatinine Ratio Glucose POC Glucose 94 Calcium Magnesium Total Bilirubin AST ALT Alkaline Phosphatase Troponin I 0.026 Total Protein Albumin Globulin Albumin/Globulin Ratio Lipase Hepatitis C Ab Screen Neg 06/22/19 06/23/19 06/23/19 20:23 01:47 01:47 WBC 9.05 RBC 4.12 L Hgb 11.9 L Hct 38.1 L MCV 92.5 MCH 28.9 MCHC 31.2 L RDW Std Deviation 48.7 H RDW Coeff of Lucas 14.3 Plt Count 151 MPV 12.7 H Immature Gran % (Auto) Neut % (Auto) Lymph % (Auto) [place] % (Auto) Eos % (Auto) Baso % (Auto) Immature Gran # (Auto) Neut # (Auto) Lymph # (Auto) [place] # (Auto) Eos # (Auto) Baso # (Auto) PT INR APTT PTT Ratio Sodium 139 Potassium 4.4 Chloride 110 H Carbon Dioxide 27 Anion Gap 2.0 L BUN 40 H Creatinine 1.91 H Est Cr Clr Drug Dosing 55.7 Est GFR ( Amer) 42.0 Est GFR (Non-Af Amer) 36.2 BUN/Creatinine Ratio 20.9 H Glucose 76 POC Glucose 106 H Calcium 8.4 L Magnesium Total Bilirubin 0.5 AST 14 L ALT 24 Alkaline Phosphatase 51 Troponin I 0.025 Total Protein 6.6 Albumin 2.9 L Globulin 3.7 Albumin/Globulin Ratio 0.8 L Lipase Hepatitis C Ab Screen 06/23/19 06/23/19 06/23/19 01:47 07:41 07:41 WBC RBC Hgb Hct MCV MCH MCHC RDW Std Deviation RDW Coeff of Lucas Plt Count MPV Immature Gran % (Auto) Neut % (Auto) Lymph % (Auto) [place] % (Auto) Eos % (Auto) Baso % (Auto) Immature Gran # (Auto) Neut # (Auto) Lymph # (Auto) [place] # (Auto) Eos # (Auto) Baso # (Auto) PT INR APTT PTT Ratio Sodium Potassium Chloride Carbon Dioxide Anion Gap BUN Creatinine Est Cr Clr Drug Dosing Est GFR ( Amer) Est GFR (Non-Af Amer) BUN/Creatinine Ratio Glucose POC Glucose 63 L* 64 L* Calcium Magnesium 2.1 Total Bilirubin AST ALT Alkaline Phosphatase Troponin I Total Protein Albumin Globulin Albumin/Globulin Ratio Lipase Hepatitis C Ab Screen 06/23/19 06/23/19 07:58 08:25 WBC RBC Hgb Hct MCV MCH MCHC RDW Std Deviation RDW Coeff of Lucas Plt Count MPV Immature Gran % (Auto) Neut % (Auto) Lymph % (Auto) [place] % (Auto) Eos % (Auto) Baso % (Auto) Immature Gran # (Auto) Neut # (Auto) Lymph # (Auto) [place] # (Auto) Eos # (Auto) Baso # (Auto) PT INR APTT PTT Ratio Sodium Potassium Chloride Carbon Dioxide Anion Gap BUN Creatinine Est Cr Clr Drug Dosing Est GFR ( Amer) Est GFR (Non-Af Amer) BUN/Creatinine Ratio Glucose POC Glucose 67 L* 113 H Calcium Magnesium Total Bilirubin AST ALT Alkaline Phosphatase Troponin I Total Protein Albumin Globulin Albumin/Globulin Ratio Lipase Hepatitis C Ab Screen Diagnostic Findings Echo-- moderately to severely reduced LV systolic function. LVEF 30-35%. Left atrium mildly dilated. Aortic valve sclerosis, no significant aortic stenosis. Mild MR. ECG Additional Comments: EKG atrial flutter with RVR Tele-- atrial flutter/fib with PVCs, HR 100-140s PG Care Time/CCT Total # of Minutes Spent Total Time Spent with Patient: Total time spent is greater than 50% in coordination of care (as documented) at patient's floor/unit and/or counseling patient:
[2019-06-23] MEDS ORDERED: NON-FORMULARY MEDICATION (Krill Oil 500 MG) PO SCH (09:00)
[2019-06-23] MEDS: INSULIN ASPART 100 UNITS/ML 3 ML PEN SC SCH ×4 (09:28→20:46)
[2019-06-23] MEDS ORDERED: METOPROLOL TARTRATE 1 MG/ML VIAL IV ONE (09:45)
[2019-06-23] MEDS: APIXABAN 5 MG TABLET PO SCH ×2 (10:29→20:47)
[2019-06-23] MEDS: FUROSEMIDE 40 MG in SYRINGE 0 ML IV SCH (10:30)
[2019-06-23] MEDS ORDERED: FUROSEMIDE 40 MG in SYRINGE 0 ML IV ONE (15:45)
--- NOTE | 2019-06-23 19:14 | Hospitalist Progress Note ---
Date of Service June 23, 2019 Assessment & Plan (1) Acute systolic congestive heart failure: Still decompensated. Received IV lasix this am but is not negative for the day. Will give an additional dose of IV lasix this afternoon. Strict I's and O's. Daily weights. Chronicity of systolic CHF is not known. Cause of systolic CHF - could be from tachyarrhythmia (ie uncontrolled a.fib/flutter); cannot rule out ischemic. Defer additional work-up to cardiology. Cont BB. Will need low-dose SASHA back if BPs will allow. (2) Atrial flutter: Dr Cortez evaluated; since he has not been on anticoagulation will try rate-control strategy first. Dr Cortez increased his metoprolol; this has helped but rates not optimal yet. Agree with eliquis 5mg BID. If rate control strategy is not effective - FRANCISCO cardioversion? (3) Atrial fibrillation with RVR: rate control anticoagulation (4) Diabetic nephropathy associated with type 2 diabetes mellitus: Cr stable today BMP am (5) Dyslipidemia: unfortunately the patient is statin-intolerant (6) Hypothyroidism: TSH 04/2019 wnl cont synthroid no changes (7) Hypertension: controlled holding SASHA as we need more room for additional beta blockade (8) Morbid obesity: BMI 46.5 (9) Stage III chronic kidney disease: bmp daily while getting diuresis (10) Diabetes: significant hypoglycemia this am reduce lantus again to 20 units daily reduce the novolog for meals (11) Coronary artery disease: s/p CABG in past no ischemic symptoms at this time cont BB cont asa need for ischemic w/u in the future in light of new-onset CHF? defer to cardiology (12) DVT prophylaxis: eliquis BID extensively updated at bedside Subjective tele - mostly variable a.flutter, rates still >100 but modestly improved from admission. still quite short of breath particularly with movement. less orthopnea. he reports having had PAF shortly after his CABG at [facility] near [place] years ago. He is not aware of any other PAF. Review of Systems Constitutional: no fever, no chills and no anorexia Respiratory: + cough, + dyspnea and + dyspnea on exertion Cardiovascular: + dyspnea at rest, + dyspnea on exertion, + orthopnea, + paroxysmal nocturnal dyspnea and + edema; no chest pain Gastrointestinal: + bloating; no nausea and no vomiting Physical Exam Constitutional: + morbidly obese; no acute distress ENMT: external ear and nose normal, oropharynx normal Respiratory: Auscultation: + diminished lung sounds, + crackles (bases b/l) and + wheezes Cardiovascular: Rate/Rhythm: + tachycardic and + irregularly irregular Heart Sounds: normal S1 and normal S2; no murmur Vessels: + JVD, posterior tibial pulses present and dorsalis pedis pulses present Extremities: + edema (1+ b/l) Gastrointestinal (Abdomen): normal bowel sounds, soft, nontender, no hepatosplenomegaly Psychiatric: A+Ox3, euthymic affect Results & Data Vital Signs (Past 12 Hours) Vital Signs Temp Pulse Pulse Resp BP BP Pulse Ox 06/23/19 16:29 103 H 20 117/76 06/23/19 16:00 103 H 06/23/19 15:02 36.5 C 98 H 18 95/66 L 96 06/23/19 13:30 94 H 103/61 06/23/19 12:14 36.5 C 103 H 18 105/67 97 06/23/19 10:32 96 H 116/77 06/23/19 08:20 112 H 06/23/19 08:00 36.6 C 111 H 20 103/76 94 Laboratory Results Laboratory Results - last 24 hr 06/22/19 06/23/19 06/23/19 20:23 01:47 01:47 WBC 9.05 RBC 4.12 L Hgb 11.9 L Hct 38.1 L MCV 92.5 MCH 28.9 MCHC 31.2 L RDW Std Deviation 48.7 H RDW Coeff of Lucas 14.3 Plt Count 151 MPV 12.7 H Sodium 139 Potassium 4.4 Chloride 110 H Carbon Dioxide 27 Anion Gap 2.0 L BUN 40 H Creatinine 1.91 H Est Cr Clr Drug Dosing 55.7 Est GFR ( Amer) 42.0 Est GFR (Non-Af Amer) 36.2 BUN/Creatinine Ratio 20.9 H Glucose 76 POC Glucose 106 H Calcium 8.4 L Magnesium Total Bilirubin 0.5 AST 14 L ALT 24 Alkaline Phosphatase 51 Troponin I 0.025 Total Protein 6.6 Albumin 2.9 L Globulin 3.7 Albumin/Globulin Ratio 0.8 L 06/23/19 06/23/19 06/23/19 01:47 07:41 07:41 WBC RBC Hgb Hct MCV MCH MCHC RDW Std Deviation RDW Coeff of Lucas Plt Count MPV Sodium Potassium Chloride Carbon Dioxide Anion Gap BUN Creatinine Est Cr Clr Drug Dosing Est GFR ( Amer) Est GFR (Non-Af Amer) BUN/Creatinine Ratio Glucose POC Glucose 63 L* 64 L* Calcium Magnesium 2.1 Total Bilirubin AST ALT Alkaline Phosphatase Troponin I Total Protein Albumin Globulin Albumin/Globulin Ratio 06/23/19 06/23/19 06/23/19 07:58 08:25 11:42 WBC RBC Hgb Hct MCV MCH MCHC RDW Std Deviation RDW Coeff of Lucas Plt Count MPV Sodium Potassium Chloride Carbon Dioxide Anion Gap BUN Creatinine Est Cr Clr Drug Dosing Est GFR ( Amer) Est GFR (Non-Af Amer) BUN/Creatinine Ratio Glucose POC Glucose 67 L* 113 H 102 H Calcium Magnesium Total Bilirubin AST ALT Alkaline Phosphatase Troponin I Total Protein Albumin Globulin Albumin/Globulin Ratio 06/23/19 15:43 WBC RBC Hgb Hct MCV MCH MCHC RDW Std Deviation RDW Coeff of Lucas Plt Count MPV Sodium Potassium Chloride Carbon Dioxide Anion Gap BUN Creatinine Est Cr Clr Drug Dosing Est GFR ( Amer) Est GFR (Non-Af Amer) BUN/Creatinine Ratio Glucose POC Glucose 150 H Calcium Magnesium Total Bilirubin AST ALT Alkaline Phosphatase Troponin I Total Protein Albumin Globulin Albumin/Globulin Ratio PG Care Time/CCT Total # of Minutes Spent Total Time Spent with Patient: Total time spent is greater than 50% in coordination of care (as documented) at patient's floor/unit and/or counseling patient: (1) Atrial flutter Atrial flutter type: unspecified Qualified Code(s): I48.92 - Unspecified atrial flutter (2) Hypothyroidism Hypothyroidism type: acquired Qualified Code(s): E03.9 - Hypothyroidism, unspecified (3) Hypertension Hypertension type: essential hypertension Qualified Code(s): I10 - Essential (primary) hypertension (4) Diabetes Diabetes mellitus type: type 2 Diabetes mellitus keno terminal operator insulin use: with long-term use Diabetes mellitus complication status: with kidney complications Diabetes mellitus complication detail: with chronic kidney disease Chronic kidney disease stage: stage 3 (moderate) Qualified Code(s): E11.22 - Type 2 diabetes mellitus with diabetic chronic kidney disease; N18.3 - Chronic kidney disease, stage 3 (moderate); Z79.4 - long-term (current) use of insulin (5) Coronary artery disease Coronary Disease-Associated Artery/Lesion type: [place] artery [place] vs. transplanted heart: [place] heart Associated angina: without angina Qualified Code(s): I25.10 - Atherosclerotic heart disease of [place] coronary artery without angina pectoris
[2019-06-23] MEDS: INSULIN GLARGINE SOLOSTAR 100 UNITS/ML 3 ML PEN SC SCH (20:45)
[2019-06-24] MEDS: LEVOTHYROXINE SODIUM 112 MCG TABLET PO SCH (05:47)
[2019-06-24 06:50] LABS: BUN Creatinine Ratio 21.1 (10-20); Calcium 8.4 mg/dl (8.5-10.1); Creatinine Clr Calc Pharmacy 54.4 ml/min; Est GFR (African American) 41.4; Est GFR (Non-African American) 35.8; Potassium 4.2 mmol/L (3.5-5.1)
[2019-06-24] MEDS: FUROSEMIDE 40 MG in SYRINGE 0 ML IV SCH ×2 (08:21→17:35)
[2019-06-24] MEDS: MULTIVITAMIN TAB PO SCH (08:21)
[2019-06-24] MEDS: CHOLECALCIFEROL 1,000 UNITS TAB PO SCH (08:21)
[2019-06-24] MEDS: METOPROLOL TARTRATE 25 MG TAB PO SCH ×4 (08:21→20:43)
[2019-06-24] MEDS: APIXABAN 5 MG TABLET PO SCH ×2 (08:22→20:43)
[2019-06-24] MEDS: DICLOFENAC SOD 1% GEL 100 GM TUBE EXT SCH ×2 (08:22→20:42)
[2019-06-24] MEDS: INSULIN ASPART 100 UNITS/ML 3 ML PEN SC SCH ×4 (08:22→20:44)
[2019-06-24] MEDS: ASPIRIN 81 MG ECTAB PO SCH (08:22)
[2019-06-24] MEDS: CYANOCOBALAMIN 500 MCG TABLET (VITAMIN B-12) PO SCH (08:22)
[2019-06-24] MEDS: FOLIC ACID 400 MCG TAB PO SCH (08:22)
[2019-06-24] MEDS: ASCORBIC ACID 500 MG TAB PO SCH (08:22)
[2019-06-24] MEDS ORDERED: DIGOXIN 250 MCG in SYRINGE 9 ML IV ONE (09:45)
--- NOTE | 2019-06-24 10:55 | Cardiology Progress Note ---
Date of Service June 24, 2019 Assessment & Plan (1) Atrial flutter: The patient's ventricular response is better control, however, not yet optimal. Would start intravenous digoxin at 0.25 mg x2 today. Could start digoxin 0.125 mg orally this evening, depending on his heart rate response. Suspect he has been in this rhythm for several weeks and realizing his cardiomyopathy. (2) Acute systolic congestive heart failure: Still decompensated as he is experiencing pink sputum. Would continue intravenous Lasix b.i.d. until his BUN and creatinine began to increase. His volume status is difficult to assess by physical examination. (3) Cardiomyopathy: Suspect this is tachycardic induced. If his ejection fraction does not improve after 3 months of a controlled ventricular response or sinus rhythm, will pursue an ischemic workup. (4) Coronary artery disease: The patient had a 3 vessel bypass procedure performed in April 2014 (MARKHAM to LAD, radial graft off of MARKHAM to OM, SVG to PDA). (5) Hypertension: Well controlled on current regimen. Subjective Mr. Zapata is resting comfortably in bed without complaints of chest pain or dyspnea. Has noted a pink discoloration to his sputum. Physical Exam Physical Exam: In general this is an obese white male lying at 45 degrees in bed without complaints. HEENT exam is negative. Neck is supple with full carotid upstrokes. There are no carotid bruits. Jugular venous pressure is flat at 90 degrees. There is no thyromegaly. Cardiovascular exam reveals an irregular rhythm with distant heart sounds. No obvious murmurs. Lungs are clear without rales, rhonchi or wheezes. Abdomen is obese without bruits. Extremities reveal intact radial artery pulses bilaterally. Trace pretibial edema is noted. Results & Data Vital Signs (Past 12 Hours) Vital Signs Temp Pulse Resp BP Pulse Ox 06/24/19 08:00 36.6 C 97 H 18 98/65 L 95 06/24/19 03:08 36.5 C 80 20 99/46 L 95 06/24/19 00:20 36.8 C 108 H 20 101/60 95 Diagnostic Findings workplace relations adviser notes atrial flutter with variable ventricular response. Heart rate currently in the 90-100 range. PG Care Time/CCT Total # of Minutes Spent Total Time Spent with Patient: Total time spent is greater than 50% in coordination of care (as documented) at patient's floor/unit and/or counseling patient: (1) Coronary artery disease Associated angina: without angina Coronary Disease-Associated Artery/Lesion type: [place] artery [place] vs. transplanted heart: [place] heart Qualified Code(s): I25.10 - Atherosclerotic heart disease of [place] coronary artery without angina pectoris (2) Atrial flutter Atrial flutter type: unspecified Qualified Code(s): I48.92 - Unspecified atrial flutter (3) Hypertension Hypertension type: essential hypertension Qualified Code(s): I10 - Essential (primary) hypertension
[2019-06-24] MEDS ORDERED: DIGOXIN 500 MCG/2 ML AMP IV SCH (16:00)
[2019-06-24] MEDS ORDERED: DIGOXIN 250 MCG in SYRINGE 9 ML IV SCH (16:00)
[2019-06-24] MEDS: INSULIN GLARGINE SOLOSTAR 100 UNITS/ML 3 ML PEN SC SCH (20:45)
--- NOTE | 2019-06-24 20:52 | Hospitalist Progress Note ---
Date of Service June 24, 2019 Assessment & Plan (1) Acute systolic congestive heart failure: Still decompensated but much improved. Cont IV lasix BID. Strict I's and O's. Daily weights. Chronicity of systolic CHF is not known. Cause of systolic CHF - could be from tachyarrhythmia (ie uncontrolled a.fib/flutter); cannot rule out ischemia. Defer additional work-up to cardiology. Cont BB. Will need low-dose SASHA back if BPs will allow. (2) Atrial flutter: Improving. Cont BB. Add digoxin - 250mcg IV x 1 now, then another 250mcg later today. Then start PO dig tomorrow. Continue eliquis 5mg BID. If rate control strategy is not effective - FRANCISCO cardioversion? (3) Atrial fibrillation with RVR: rate control strategy for now improving adding digoxin today cont anticoagulation (4) Diabetic nephropathy associated with type 2 diabetes mellitus: Cr stable again today BMP am (5) Dyslipidemia: unfortunately the patient is statin-intolerant (6) Hypothyroidism: TSH 04/2019 wnl cont synthroid no changes (7) Hypertension: controlled holding SASHA for now (8) Morbid obesity: BMI 46 (9) Stage III chronic kidney disease: bmp daily while getting diuresis Cr stable today (10) Diabetes: cont lantus 20 units daily cont novolog control excellent today w/o any hypoglycemia (11) Coronary artery disease: s/p CABG in past no ischemic symptoms at this time cont BB cont asa need for ischemic w/u in the future in light of new-onset CHF? defer to cardiology (12) DVT prophylaxis: eliquis BID extensively updated at bedside yesterday PT eval pending overall improving Subjective HRs overnight <100 but not consistently. He overall feels better. Breathing is improved. Less orthopnea, less dyspnea. Review of Systems Constitutional: no fever Respiratory: no cough and no dyspnea Cardiovascular: no chest pain, no orthopnea and no paroxysmal nocturnal dyspnea Gastrointestinal: no abdominal pain Physical Exam Constitutional: + morbidly obese; no acute distress ENMT: external ear and nose normal, oropharynx normal Respiratory: Auscultation: + diminished lung sounds, + crackles (bases b/l but MUCH improved) and + wheezes (mild end-exp) Cardiovascular: Rate/Rhythm: regular rate and + irregularly irregular Heart Sounds: normal S1 and normal S2; no murmur Vessels: posterior tibial pulses present and dorsalis pedis pulses present; no JVD Extremities: no edema Gastrointestinal (Abdomen): normal bowel sounds, soft, nontender, no hepatosplenomegaly Psychiatric: A+Ox3, euthymic affect Results & Data Vital Signs (Past 12 Hours) Vital Signs Temp Pulse Resp BP Pulse Ox 06/24/19 15:50 36.6 C 88 20 113/68 98 06/24/19 11:42 36.4 C L 81 18 99/73 L 97 Laboratory Results Laboratory Results - last 24 hr 06/24/19 06/24/19 06/24/19 05:36 07:41 11:40 Sodium 139 Potassium 4.2 Chloride 107 Carbon Dioxide 30 Anion Gap 2.0 L BUN 41 H Creatinine 1.93 H Est Cr Clr Drug Dosing 54.4 Est GFR ( Amer) 41.4 Est GFR (Non-Af Amer) 35.8 BUN/Creatinine Ratio 21.1 H Glucose 90 POC Glucose 94 104 H Calcium 8.4 L 06/24/19 06/24/19 16:24 20:34 Sodium Potassium Chloride Carbon Dioxide Anion Gap BUN Creatinine Est Cr Clr Drug Dosing Est GFR ( Amer) Est GFR (Non-Af Amer) BUN/Creatinine Ratio Glucose POC Glucose 125 H 127 H Calcium PG Care Time/CCT Total # of Minutes Spent Total Time Spent with Patient: Total time spent is greater than 50% in coordination of care (as documented) at patient's floor/unit and/or counseling patient: (1) Diabetes Chronic kidney disease stage: stage 3 (moderate) Diabetes mellitus complication detail: with chronic kidney disease Diabetes mellitus complication status: with kidney complications Diabetes mellitus retirement insulin use: with terminal makeup operator use Diabetes mellitus type: type 2 Qualified Code(s): E11.22 - Type 2 diabetes mellitus with diabetic chronic kidney disease; N18.3 - Chronic kidney disease, stage 3 (moderate); Z79.4 - detention (current) use of insulin (2) Coronary artery disease Associated angina: without angina Coronary Disease-Associated Artery/Lesion type: [place] artery [place] vs. transplanted heart: [place] heart Qualified Code(s): I25.10 - Atherosclerotic heart disease of [place] coronary artery without angina pectoris (3) Atrial flutter Atrial flutter type: unspecified Qualified Code(s): I48.92 - Unspecified atrial flutter (4) Hypothyroidism Hypothyroidism type: acquired Qualified Code(s): E03.9 - Hypothyroidism, unspecified (5) Hypertension Hypertension type: essential hypertension Qualified Code(s): I10 - Essential (primary) hypertension
[2019-06-25] MEDS: LEVOTHYROXINE SODIUM 112 MCG TABLET PO SCH (06:30)
[2019-06-25 06:45] LABS: Calcium 8.1 mg/dl (8.5-10.1); Creatinine Clr Calc Pharmacy 56.7 ml/min; Est GFR (African American) 43.6; Est GFR (Non-African American) 37.6
[2019-06-25] MEDS: FOLIC ACID 400 MCG TAB PO SCH (08:33)
[2019-06-25] MEDS: METOPROLOL TARTRATE 25 MG TAB PO SCH ×3 (08:33→16:52)
[2019-06-25] MEDS: CYANOCOBALAMIN 500 MCG TABLET (VITAMIN B-12) PO SCH (08:33)
[2019-06-25] MEDS: ASCORBIC ACID 500 MG TAB PO SCH (08:33)
[2019-06-25] MEDS: ASPIRIN 81 MG ECTAB PO SCH (08:33)
[2019-06-25] MEDS: CHOLECALCIFEROL 1,000 UNITS TAB PO SCH (08:33)
[2019-06-25] MEDS: APIXABAN 5 MG TABLET PO SCH (08:34)
[2019-06-25] MEDS: FUROSEMIDE 40 MG in SYRINGE 0 ML IV SCH ×2 (08:34→14:58)
[2019-06-25] MEDS: MULTIVITAMIN TAB PO SCH (08:34)
[2019-06-25] MEDS: DICLOFENAC SOD 1% GEL 100 GM TUBE EXT SCH (08:34)
[2019-06-25] MEDS: INSULIN ASPART 100 UNITS/ML 3 ML PEN SC SCH ×3 (08:44→16:54)
--- NOTE | 2019-06-25 09:58 | Cardiology Progress Note ---
Date of Service June 25, 2019 Assessment & Plan (1) Atrial fibrillation with RVR: 2. 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 Coronary artery disease-- post CABG 4. Hypertension 5. Dyslipidemia 6. CKD 7. CHF 8. Insulin dependent diabetes Patient remains in afib but heart rate now controlled with addition of digoxin. Breathing back to baseline and anxious to go home. Negative fluid balance and appears compensated overall. Up walking the halls and if asymptomatic OK to discharge from cardiac standpoint. --Recommend transitioning metoprolol tartrate to succinate --Home on digoxin 0.125 mg daily. --Lasix 40 mg daily until followup --Daily weight --Cardiology followup 1-2 weeks Subjective Patient feeling much better. Anxious to go home. No orthopnea or PND overnight. Breathing is back to baseline. No palpitations. No chest pain. No lightheadedness. Tele reviewed, HR controlled since starting dig. Review of Systems Review of Systems: All systems reviewed & are unremarkable except as noted in HPI & below Physical Exam Physical Exam: General: No acute distress, comfortable. HEENT: Head is normal. PERRLA. EOMI. Sclerae anicteric. Ears, nose and throat unremarkable. Mucous membranes moist. Neck: Normal carotid upstrokes, no bruits. No appreciable JVD. Lungs: Clear to auscultation bilaterally without rales, rhonchi or wheezes. Cardiac: Irregularly irregular. S1-S2 normal. No appreciable murmur, gallop or rub. Abdomen: Soft and nontender. Bowel sounds normal. No mass or organomegaly. No abdominal bruit. Extremities/vascular: --Well perfused. Trace LE edema bilaterally Radial, DP and PT pulses 2+ bilaterally Skin: No rash or abnormal lesions. Normal turgor. Neurologic: Nonfocal Psychiatric: Affect appropriate. Alert and oriented. Results & Data Vital Signs (Past 12 Hours) Vital Signs Temp Pulse Pulse Resp BP Pulse Ox 06/25/19 07:18 36.4 C L 79 20 103/68 95 06/25/19 04:53 36.4 C L 69 20 111/43 L 93 06/25/19 00:08 36.6 C 84 20 141/86 H 95 06/24/19 23:18 97 H Laboratory Results Laboratory Results - last 24 hr 06/24/19 06/24/19 06/24/19 11:40 16:24 20:34 Sodium Potassium Chloride Carbon Dioxide Anion Gap BUN Creatinine Est Cr Clr Drug Dosing Est GFR ( Amer) Est GFR (Non-Af Amer) BUN/Creatinine Ratio Glucose POC Glucose 104 H 125 H 127 H Calcium 06/25/19 06/25/19 05:47 07:15 Sodium 139 Potassium 4.0 Chloride 108 H Carbon Dioxide 28 Anion Gap 3.0 BUN 41 H Creatinine 1.85 H Est Cr Clr Drug Dosing 56.7 Est GFR ( Amer) 43.6 Est GFR (Non-Af Amer) 37.6 BUN/Creatinine Ratio 22.0 H Glucose 74 POC Glucose 82 Calcium 8.1 L PG Care Time/CCT Total # of Minutes Spent Total Time Spent with Patient: Total time spent is greater than 50% in coordination of care (as documented) at patient's floor/unit and/or counseling patient:
[2019-06-25] MEDS ORDERED: DIGOXIN 0.125 MG TAB PO ONE (12:18)
--- NOTE | 2019-06-25 17:46 | Discharge Summary ---
Date of Service date of admission - June 22, 2019 date of discharge - June 25, 2019 Admission HPI Per Admitting Provider This is a 63-year-old male with past medical history of CAD s/p CABG x3 in Apr 2014 with postop sternal wound infection, a flutter, A. fib, HTN, HLD, CHF, CKD stage III, DM type II, diabetic nephropathy, diabetic retinopathy, hypothyroidism, gout who presents to the ER in atrial fibrillation with RVR. Patient was initially found to have heart rate elevated in the 140s, has improved with 1 dose of IV Lopressor to the ~110s. The patient notes that he began feeling short of breath with ADLs about 3 days ago. He has difficulty going up a flight of stairs without becoming significantly winded. He denies any chest pain, palpitations, flutter. He reports that he has not been sleeping well as he feels slightly short of breath, but denies orthopnea. He denies any lightheadedness or dizziness. He has been eating and drinking without difficulty. Patient states that he is not swollen however on exam appears to have mild pitting edema in both legs. Patient reports he took his morning medication today which includes metoprolol tartrate 25 mg, last took lisinopril last evening, and last took Lasix 40 mg QOD 2 nights ago. He follows with Columba Plummer PA-C with [facility] cardiology but has not been in to see her recently due to having a routine appointment rescheduled for July 2019. Principal Diagnosis rapid a.fib / a.flutter - improved Discharge Exam Constitutional + morbidly obese; no acute distress ENMT external ear and nose normal, oropharynx normal Respiratory Auscultation: + diminished lung sounds (bases); no crackles and no wheezes Cardiovascular Rate/Rhythm: regular rate and + irregularly irregular Heart Sounds: normal S1 and normal S2; no murmur Vessels: posterior tibial pulses present and dorsalis pedis pulses present; no JVD Extremities: no edema Gastrointestinal (Abdomen) normal bowel sounds, soft, nontender, no hepatosplenomegaly Psychiatric A+Ox3, euthymic affect Discharge Data Allergies Allergy/AdvReac Type Severity Reaction Status Date / Time Aitsfwp-Rid-Cak Reductase Allergy Unknown Verified 06/22/19 11:37 Inhibitor Consultations Cardiology - Yamil Cortez MD Procedures Performed echocardiogram - * EF 30-35% * global hypokinesis of LV * diastolic dysfunction grade 2 * mild LVH * normal valve function Hospital Course (1) Acute systolic congestive heart failure: Chronicity of systolic CHF was uncertain. EF on echo was 30-35%. Cause of systolic CHF -- could be from tachyarrhythmia (ie uncontrolled a.fib/flutter); cannot rule out ischemia as he has known CAD. Was aggressively diuresed during his stay. Discharge weight was 139.4 kg (down at least 6kg from admission). He was seen in consult by Dr Yamil Cortez, [facility], who provided christianson recommendations for his a.fib/flutter and CHF. He will continue on metoprolol xl and lasix 40mg once daily. Low-dose SASHA was not started due to low-normal BPs and CKD. This potentially could be started in the future as an outpatient. He was counseled on importance of fluid & salt restriction as well as checking daily weights at home. f/u with [facility] within 1 week was advised. (2) Atrial flutter: Improved rate control with titration of beta henry and addition of digoxin (given IV load, then started on oral digoxin on day of discharge). CHADS-VASc score is high and thus anticoagulation was recommended. He was initiated on eliquis 5mg BID. Rates at rest and with exertion were acceptable on day of discharge. (3) Atrial fibrillation with RVR: Rate control strategy was recommended by Dr Cortez at time of admission. This was achieved with titration of his metoprolol and adding digoxin. He was started on eliquis for anticoagulation. (4) Diabetic nephropathy associated with type 2 diabetes mellitus: Cr stable at 1.8 at discharge. (5) Dyslipidemia: unfortunately the patient is statin-intolerant. (6) Hypothyroidism: TSH 04/2019 wnl cont synthroid no changes during this stay (7) Hypertension: controlled throughout the stay. deferring on SASHA for now due to low-normal BPs at times. (8) Morbid obesity: BMI 45 (9) Stage III chronic kidney disease: Cr 1.8 at time of discharge. will need repeat BMP within 1 week of discharge due to the medication changes made during the stay. (10) Diabetes: The patient's glycemic control was excellent with simply using a fraction of the amount of insulin he was using at home. He was controlled on lantus 20 units daily along with meal-time novolog. It was difficult to advise him on how much insulin to use at home given that his insulin requirements here were VERY low relative to his pre-hospitalization amount. Recommended 20 units of Tresiba at discharge along with 5 units TID of novolog. He will need to make upward adjustments if he develops hyperglycemia at home. (11) Coronary artery disease: s/p CABG in past no ischemic symptoms pre-hospitalization or during the stay cont BB cont asa need for ischemic w/u in the future in light of new-onset CHF? defer to cardiology Total Time Total Time Spent Total Time Spent (In Minutes): 45 Total Time Includes: Examination of the Patient, Discharge Planning, Medication Reconciliation and Communication With Other Providers Discharge Plan Discharge Items Patient Disposition: Home - Self-Care Reason For Visit: AFIB/FLUTTER, congestive heart failure Discharge Diagnosis: 1. rapid a.fib/flutter - improved/controlled 2. 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 Lifting: No more than 10 pounds Sexual Activity: Wait until after follow-up appointment Exercise/Sports: Wait until after follow-up appointment Driving/Machine Use: Resume 1 day after discharge Follow-up/Referrals: Rodrigo Cortez MD [Physician] - (see Dr Cortez within 1 week (or one of his partners) ) Abel Nicolas MD [Primary Care Provider] - (see Dr Nicolas within 5 days if possible (before or after Bessy) ) Diet: Carb Consistent or DM2 and Heart Healthy Fluids: 1800ml (7 cups) Ambulatory Orders: Basic Metabolic Panel (Routine) Timeframe: 20190628 Location: Determined by Patient Ordered By: Luis Lopez Digoxin (Routine) Timeframe: 20190628 Location: Determined by Patient Ordered By: Luis Lopez Magnesium (Routine) Timeframe: 20190628 Location: Determined by Patient Ordered By: Luis Lopez Addtl Attending Provider Instructions: You were treated for rapid a.fib/a.flutter and new-onset congestive heart failure. The a.fib/a.flutter are irregular rhythms that come from the top portion of your heart. It is possible that your congestive heart failure was made worse by the a.fib/a.flutter. The congestive heart failure led to fluid build-up in your lungs making it hard to breath. The fluid was removed with diuretics. You lost a considerable amount of weight while hospitalized (at least 14 pounds) and your weight is about 306/307 pounds at discharge. The oxygen was weaned off by time of discharge. Your a.fib/a.flutter improved with increasing doses of metoprolol and addition of digoxin. Dr Cortez and his team provided christianson recommendations for your heart care. Recommendations - 1. START eliquis blood thinner 5mg twice daily every day; take your first dose tonight. This is a blood thinner to prevent development of blood clots in your heart from the a.fib, thereby reducing your risk of stroke from a.fib/a.flutter. 2. STOP your metoprolol tartrate twice daily. In its place START metoprolol succinate 100mg once daily. Take your first dose first thing tomorrow morning. 3. START digoxin 0.125mg (125mcg) once daily on 06/26/19. Take it every afternoon. This is for your a.fib/a.flutter. 4. TAKE LASIX (furosemide) 40mg EVERY DAY. This is your water pill to keep excess fluid off of you. 5. STOP your lisinopril for now. It may be restarted in the future. 6. START potassium supplement once daily. 7. Diabetes - you have been requiring only a small fraction of insulin at the hospital as opposed to what you take at home. You have been controlled on lantus 20 units nightly and very small doses of novolog (<5 units) with your meals. I am not certain how much insulin to recommend to you at this time. However, I believe you will likely need at least 40 units of lantus and 10-15 units of novolog with your meals. If your sugars run high at home despite these recommendations simply resume your previous insulin regimen. 8. Please have blood work checked on 06/28/2019, at [facility] or one of the [facility] clinics. I will have these results forwarded to Dr Cortez and Dr Nicolas. Congestive Heart Failure: Discharge Instructions Congestive Heart Failure essentially means your heart is able to have a "traffic jam" of fluid that backs up into your lungs. Fluid in lungs then blocks up breathing space making you feel short of breath. In the hospital, our job is to get the fluid off so that you are able to breathe better, and then get you back on track with medication and lifestyle adjustments to keep the traffic jam from happening again. Salt (Sodium) The vast majority of people admitted to the hospital with fluid back up into the lungs get there because of too much salt in their diet. The way our kidneys work: when you take a small amount of sodium, your kidneys hold onto a small amount of water. When you take a large amount of sodium, your kidneys hold onto a large amount of water. When this happens, your blood vessels get flooded, your heart gets overfilled, and the fluid backs up into your lungs. Most people know to avoid the salt shaker, but sodium is in almost anything prepackaged/prepared, as a preservative or as a flavoring agent. Most of the people we take care of who are here with congestive heart failure caused by too much sodium do not use a salt shaker at all. Get into the habit of looking at food labels, so you can see how much sodium is in the foods you eat. The most important number to look at is how much sodium is in each serving. But also notice the size of a serving. [employer] will frequently make a serving size so tiny that it does not look like there is much sodium per serving, but a normal person might eat 3 or 4 servings of the food and take in a lot more sodium than they realized. Keep a "budget" of how much sodium you take in in each day. Most people stay out of trouble and stay out of the hospital as long as they stay "under budget". The majority of congestive heart failure patients do well if they take less than 2000 mg of sodium a day. Because our kidneys retain water based on how much sodium they are seeing in any given moment, it is also important to stay at less than about 500 mg in any given meal. This is because even if you stayed at less than 2000 mg of sodium, but ate it all at once, your kidneys would retain fluid at a rate as though you are taking in much more sodium than you actually are. Occasionally your doctor may specifically recommend restricting even further (such as less than 1500mg per day) so if you have been told to be even stricter with sodium, please follow that advice. -Following How You Are Doing (Wet Versus Dry) Because managing congestive heart failure is an ongoing process, it is very important to learn how to follow your signs and symptoms and track how you are doing at home. This will allow you to catch problems before they become a big deal. In general, as your health care team, we look at managing congestive heart failure chronically as a balance of being "wet" (flooded with fluid) versus being "dry" (dehydrated from treatment). Wet - signs of fluid retention that would warrant further evaluation: Check your weight daily. If your weight goes up by more than 2-3 pounds in 1-2 days, it is almost certainly fluid related. This should warrant a call to your doctor. Follow your breathingmost of the time, early on when fluid backs up into your lungs, you will first start to notice shortness of breath when walking, or when lying flat. If you notice either of these, this should warrant further thought, and/or a call to your doctor If you notice both an increase in weight and worsening breathing, that definitely warrants getting seen as soon as possible "Dry"while the goal of managing the disease is to keep you from getting "wet, the medications can sometimes cause a degree of dehydration. Most people with congestive heart failure need frequent lab work (basic metabolic panel). Generally when there has been a change in diuretic dosing (a change in the water pill) or any other major changes, lab work should be followed closely and more frequently afterwards. This is because lab work will frequently show early signs of dehydration before you start to feel bad. Frequent symptoms of being dehydrated include: feeling weak and lightheaded, having lower blood pressures, making less urine than usual, or having a very dry mouth. If you notice any of these signs/symptoms, and you are not due for lab work, it would be quite reasonable to call your doctor to see if lab work or a visit could be arranged. Heart Failure Management Checklist: Limit Salt (Sodium) Intake to 2000mg (2g) per day and 500mg (0.5g) per meal Check weight daily (in same clothes, without shoes) every morning Use the provided chart to enter your weight and salt intake for the day Are you too wet? If you gained 2lb or more - make sure to take your water pill If your breathing is not good (you are more short of breath than usual) call your doctor regardless of weight change If you gained 2lb or more and you are short of breath, see your doctor or come to the emergency room Are you too dry? If you feel weak or lightheaded, have lower blood pressures, make less urine than usual, or have a very dry mouth. Call your doctor Pending Studies at Discharge: No Stand-Alone Forms: [facility], Smoking Cessation Medications and DC Order Prescriptions: New Eliquis 5 mg Tablet 5 mg PO BID Qty: 60 RF: 5 digoxin 125 mcg (0.125 mg) tablet 125 mcg PO DAILY Qty: 30 RF: 5 potassium chloride 10 mEq capsule, extended release 10 meq PO DAILY Qty: 30 RF: 2 metoprolol succinate 100 mg tablet extended release 24 hr 100 mg PO DAILY Qty: 30 RF: 5 Continued aspirin 81 mg tablet,delayed release (DR/EC) 81 mg PO DAILY RF: 0 Contrave 8-90 mg tablet extended release 1 tab PO BID RF: 0 diclofenac sodium 1 % gel 2 gm topical BID Qty: 1 RF: 0 folic acid 400 mcg tablet 400 mcg PO DAILY RF: 0 krill oil 500 mg capsule 500 mg PO DAILY RF: 0 multivitamin tablet 1 tab PO DAILY RF: 0 (DME) lancets [OneTouch Delica Lancets] 33 gauge misc See Dose Instructions .ROUTE .MEDSUPPLY Qty: 100 RF: 0 (DME) blood-glucose meter [[employer] UltraMini] kit See Dose Instructions .ROUTE .MEDSUPPLY Qty: 1 RF: 0 ascorbic acid (vitamin C) 500 mg tablet 500 mg PO DAILY RF: 0 Trulicity 1.5 mg/0.5 mL pen injector 1.5 mg SQ WEEKLY RF: 0 cyanocobalamin (vitamin B-12) 500 mcg tablet 500 mcg PO DAILY Qty: 100 RF: 0 cholecalciferol (vitamin D3) 2,000 unit capsule 4,000 units PO DAILY RF: 0 (DME) pen needle, diabetic [BD Ultra-Fine Mini Pen Needle] 31 gauge x 3/16" needle See Dose Instructions .ROUTE .MEDSUPPLY Qty: 500 RF: 3 Praluent Pen 75 mg/mL pen injector 75 mg SQ Q14D Qty: 6 RF: 3 (DME) OneTouch Ultra Blue Test Strip strip See Dose Instructions .ROUTE .MEDSUPPLY Qty: 300 RF: 3 levothyroxine [Synthroid] 112 mcg tablet 112 mcg PO DAILY RF: 0 Changed furosemide 40 mg tablet 40 mg PO QAM Qty: 30 RF: 5 Novolog Flexpen U-100 Insulin 100 unit/mL (3 mL) insulin pen 5 units SQ TIDM Qty: 1 RF: 0 Tresiba FlexTouch U-200 200 unit/mL (3 mL) insulin pen 20 units SQ HS 90 Days Qty: 4 RF: 1 Discontinued lisinopril 10 mg tablet 10 mg PO DAILY Qty: 30 RF: 5 Discharge Orders: Discharge Order (Routine); Ordered 06/25/19 Ordered By: Luis Ivy/Other Patient Handouts: Heart Failure, AFL/Afib, Digoxin, ED Afib, ED Paroxysmal Atrial Flutter, Apixaban Oral tablet, Metoprolol Succinate Oral tablet extended-release Admission Data Admit Date/Time: 06/22/19 13:45 Attending Provider: Luis Lopez Admit Provider: Scooter Bermeo Primary Care Provider: Abel Nicolas Other Providers: Scooter Bermeo ; Jovani Gonzalez Other Interventions: Discharge Summary Assessment (RN) Last Done: 06/25/19 17:48 DC Date/Time DO NOT enter until pt leaves facility: 06/25/19 18:15
== END 2019-06-25 18:15 | disposition home or self-care (01) | DRG 291 ==
LOC: ED 10:14 → SUATTDRO 13:45 → 2E 13:45